=== PATIENT | female | born 1975 | race African-American/Black ===

== ENCOUNTER → 2021-06-11 | Outpatient (CLI) | payer BC | LOC: US 16:03 | PROVIDERS: ATTEND Internal Medicine Gastroenterology | DX: R10.10 Upper abdominal pain, unspecified (principal); R14.0 Abdominal distension (gaseous) | CPT/HCPCS: 76700 ==

== ENCOUNTER → 2021-06-13 | Day surgery (SDC) | payer BC ==
[~2021-06-13] MED LIST: FENTANYL CITRATE/PF 100MCG/2 ML INJ ONE; HYOSCYAMINE SULFATE 0.5 MG/ML INJ ONE; LIDOCAINE HCL 2% LOCAL INJ 5 ML SDV VIAL INJ ONE; MIDAZOLAM HCL 2 MG/2 ML VIAL ONE; PROPOFOL IV EMULSION 10 MG/ML 20 ML VIAL ONE
[2021-06-13 17:55] VITALS: BP 104/72
== END | disposition home or self-care (01) ==
LOC: OR 12:38
PROVIDERS: ATTEND Internal Medicine Gastroenterology
DX: Z12.11 Encounter for screening for malignant neoplasm of colon (principal); Z80.0 Family history of malignant neoplasm of digestive organs; D12.2 Benign neoplasm of ascending colon; K63.5 Polyp of colon; K64.8 Other hemorrhoids; R10.10 Upper abdominal pain, unspecified; R14.0 Abdominal distension (gaseous); Z86.73 Personal history of transient ischemic attack (TIA), and cerebral infarction without residual deficits
CPT/HCPCS: 45380; 81025; J1980; J2001; J2250; J2704; J3010; U0002; 45378